=== PATIENT | male | born 1980 | race Caucasian/White ===

== ENCOUNTER 2019-07-25 17:45 | Emergency (ER) | payer OTHER ==
[~2019-07-25] VITALS: Ht 198.1 cm; Wt 90.7 kg
[2019-07-25 19:53] VITALS: BP 126/89
[2019-07-25] MEDS ORDERED: KEFLEX500 M1 PO (20:10)
[2019-07-25] MEDS ORDERED: NORCO 5-325 TA1 EAC1 PO (20:10)
== END 2019-07-25 20:59 | disposition home or self-care (01) ==
LOC: ER 17:45
DX: S62.316A Displaced fracture of base of fifth metacarpal bone, right hand, initial encounter for closed fracture (principal); S92.251A Displaced fracture of navicular [scaphoid] of right foot, initial encounter for closed fracture; S92.152A Displaced avulsion fracture (chip fracture) of left talus, initial encounter for closed fracture; S91.012A Laceration without foreign body, left ankle, initial encounter; S81.812A Laceration without foreign body, left lower leg, initial encounter; S09.90XA Unspecified injury of head, initial encounter; M25.521 Pain in right elbow; M25.522 Pain in left elbow; R51 Headache; M79.89 Other specified soft tissue disorders; Z23 Encounter for immunization; V98.8XXA Other specified transport accidents, initial encounter; Y93.89 Activity, other specified; Y92.89 Other specified places as the place of occurrence of the external cause; Y99.8 Other external cause status

== ENCOUNTER 2019-08-08 10:26 | Emergency (ER) | payer OTHER ==
[~2019-08-08] VITALS: Ht 198.1 cm; Wt 90.7 kg
[~2019-08-08 10:26] MED LIST: KEFLEX500 M1 PO; NORCO 5-325 TA1 EAC1 PO
[2019-08-08] MEDS ORDERED: KEFLEX500 M1 PO (12:45)
[2019-08-08 13:10] VITALS: BP 124/79
== END 2019-08-08 13:11 | disposition home or self-care (01) ==
LOC: ER 10:26
DX: S91.012D Laceration without foreign body, left ankle, subsequent encounter (principal); Z91.048 Other nonmedicinal substance allergy status; V09.9XXD Pedestrian injured in unspecified transport accident, subsequent encounter